=== PATIENT | female | born 1960 | race Caucasian/White ===

== ENCOUNTER 2023-10-10 00:32 | Emergency (ER) | payer OTHER ==
[~2023-10-10] VITALS: Ht 165.1 cm; Wt 65.9 kg
[2023-10-10] MEDS ORDERED: DOXY-356 PO (01:32)
[2023-10-10] MEDS ORDERED: ONDA-245 PO (01:32)
[2023-10-10] MEDS: ondansetron 4mg rapidly disintigrating tab PO ONE (01:44)
[2023-10-10] MEDS: TETanus/Pertussis (Acell)/Diphther VAC/PF (Tdap-Adult) 0.5ml syringe IMVAC ONE (01:44)
[2023-10-10] MEDS: DOXYCYCLINE 100MG CAPSULE PO STA (01:44)
[2023-10-10 01:51] VITALS: BP 119/71; PULSE 74; RESP 16; TEMP 98.5; O2SAT 99
== END 2023-10-10 02:18 | disposition home or self-care (01) ==
LOC: ER 00:33
DX: L03.012 Cellulitis of left finger (principal)
CPT/HCPCS: 90471; 90715; 99283